=== PATIENT | female | born 1940 | race African-American/Black ===

== ENCOUNTER 2018-11-04 16:15 | Inpatient (IN) | payer OTHER, BC ==
[~2018-11-04] VITALS: Ht 149.9 cm; Wt 76.0 kg
[2018-11-04 17:42] VITALS: BP 155/36
--- NOTE | 2018-11-04 17:49 | NUR ---
STROKE ACTIVATED NOW PER EDP
[2018-11-04 18:13] LABS: URINE BILIRUBIN NEGATIVE (Negative); URINE BLOOD TRACE (Negative); URINE CLARITY CLEAR; URINE COLOR YELLOW; URINE GLUCOSE-RANDOM* NEGATIVE (Negative); URINE KETONES NEGATIVE (Negative); URINE LEUKOCYTES NEGATIVE (Negative); URINE NITRITE NEGATIVE (Negative); URINE PROTEIN (DIPSTICK) NEGATIVE (Negative); URINE SPECIFIC GRAVITY 1.015 (1.005-1.035); URINE UROBILINOGEN 0.2 E.U./dl (0.2-1.0)
[2018-11-04 19:53] LABS: ABSOLUTE NEUTROPHILS 2.6 thou/uL (1.4-8.2); HEMATOCRIT 30.2 % (37.0-47.0); HEMOGLOBIN 9.8 gm/dL (12.0-15.0); LYMPHOCYTES 37.4 % (24.0-44.0); MCH 26.9 pg (26.0-34.0); MCHC 32.5 g/dL (28.0-37.0); MCV 82.9 fL (80.0-100.0); MONOCYTES 8.9 % (1.0-8.0); PLATELET COUNT 227 thou/uL (150-400); POLYS 49.7 % (36.0-66.0); RBC 3.64 mil/uL (4.20-5.00); RDW 14.5 % (10.5-14.5); WBC 5.2 thou/uL (4.0-11.0)
[2018-11-04 19:57] LABS: ANION GAP 7 mmol/L (7-16); BUN 20 mg/dL (7-18); CALCIUM 9.1 mg/dL (8.5-10.1); CHLORIDE 100 mmol/L (98-107); CO2 26 mmol/L (21-32); CREATININE 1.7 mg/dL (0.6-1.0); GLUCOSE 98 mg/dL (74-106); POTASSIUM 4.8 mmol/L (3.5-5.1); SODIUM 133 mmol/L (136-145)
[2018-11-04 20:02] LABS: APTT 25.7 Seconds (24.5-32.8); PROTIME 10.9 Seconds (9.3-11.4)
[2018-11-04 20:05] LABS: ALBUMIN 3.7 g/dL (3.4-5.0); SGOT 16 U/L (15-37); SGPT 12 U/L (30-65); TOTAL BILIRUBIN 0.3 mg/dL (<0.1-1.0); TOTAL PROTEIN 7.9 g/dL (6.4-8.2); TROPONIN-I <0.06 ng/mL (<0.06)
--- NOTE | 2018-11-04 21:35 | NUR ---
PATIENT UP TO RESTROOM WITH STANDBY ASSIST
[2018-11-04 23:06] VITALS: BP 126/75
[2018-11-04 23:15] VITALS: BP 165/64
--- NOTE | 2018-11-05 03:38 | NUR ---
ASSUMED CARE OF PATIENT AT 2300. PATIENT ARRIVED TO ROOM 354 VIA WHEELCHAIR WITH THIS RN FROM ER. [facility] SCORE OF 1 D/T PATIENT STATING AGE OF 75 WHEN ACTUAL AGE IS 77. DISCUSSED WITH PATIENT AFTER [facility] SCORING THAT PATIENT IS IN FACT 77 AND NOT 75, PATIENT ABLE TO TALK THROUGH YEAR SHE WAS BORN AND HOW MANY YEARS SINCE TO DETERMINE CORRECT/CURRENT AGE. PATIENT INTACT OTHERWISE. C/O HEADACHE AND L LOWER EXTREMITY PAIN, TYLENOL ADMINISTERED, PATIENT ABLE TO SLEEP. PATIENT ABLE TO SLEEP MOST OF SHIFT. NO OTHER CONCERNS/COMPLAINTS AT THIS TIME. WILL CONTINUE TO MONITOR.
[2018-11-05 04:56] VITALS: BP 104/39
[2018-11-05 06:08] LABS: HEMATOCRIT 30.8 % (37.0-47.0); MCHC 32.6 g/dL (28.0-37.0); MCV 82.9 fL (80.0-100.0); RBC 3.71 mil/uL (4.20-5.00); RDW 14.8 % (10.5-14.5); WBC 6.3 thou/uL (4.0-11.0)
[2018-11-05 06:27] LABS: ANION GAP 9 mmol/L (7-16); BUN 17 mg/dL (7-18); CALCIUM 8.9 mg/dL (8.5-10.1); CHLORIDE 99 mmol/L (98-107); CHOLESTEROL 138 mg/dL (<200); CO2 25 mmol/L (21-32); CREATININE 1.6 mg/dL (0.6-1.0); GLUCOSE 89 mg/dL (74-106); HDL CHOLESTEROL 50 mg/dL (>40); LDL CHOLESTEROL 69 mg/dL (<100); POTASSIUM 4.4 mmol/L (3.5-5.1); SODIUM 133 mmol/L (136-145); TC:HDL 2.8 Ratio (Not establshd); TRIGLYCERIDE 98 mg/dL (<150); VLDL 20 mg/dL (<40)
[2018-11-05 08:29] VITALS: BP 139/55
[2018-11-05] MEDS ORDERED: LOPRESSOR100 M1 PO (11:52)
[2018-11-05] MEDS ORDERED: MOBIC7.5 MG PO (11:52)
[2018-11-05] MEDS ORDERED: SYNTHROID50 MCG PO (11:52)
[2018-11-05] MEDS ORDERED: AMLODIPINE BESY10 MG PO (11:53)
[2018-11-05] MEDS ORDERED: CELEXA10 MG PO (11:53)
[2018-11-05] MEDS ORDERED: LOSARTAN-HCTZ1 EAC1 PO (11:53)
[2018-11-05] MEDS ORDERED: ZOCOR20 MG PO (11:53)
[2018-11-05] MEDS ORDERED: HYDROXYZINE HCL10 M1 PO (11:54)
--- NOTE | 2018-11-05 13:39 | EKG ---
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[employer]: GISELLE : 1940 Requested By: Flo Lim Order Number: [id number] MD: Dionte Whitmore Measurements Intervals Percival Rate: 60 P: 33 ND: 151 QRS: 10 QRSD: 66 T: 19 QT: 433 QTc: 433 Interpretive Statements Sinus rhythm Abnormal R-wave progression, early transition No previous ECG available for comparison Electronically Signed On 11-05-2018 13:39:45 CDT by Dionte Whitmore [email or web address] ��������������������������������������������� <ELECTRONICALLY SIGNED> ���������������������������������������� By: Dionte Whitmore MD, [facility] ��������������������������������������������� 11/05/18 1339 [id number] Dionte Whitmore MD, FACC /EPI
[2018-11-05 14:00] VITALS: BP 127/49
[2018-11-05 16:41] VITALS: BP 137/52
[2018-11-05 19:47] VITALS: BP 130/61
--- NOTE | 2018-11-05 19:59 | NUR ---
ASSUMED CARE OF PT AT 0700. ASSESSMENT COMPLETED. A&0,X4. ROOM AIR. SR/SB. NEW HOME MEDS RESTARTED ORDERED. PT COMPLAINING OF LEG PAIN, ARTERIAL US COMPLETED, NO STENOSIS NOTED. DR. BELCHER WAS AT BEDSIDE THIS AFTERNOON, ORDERS FOR MRI AND MRA - NO ACUTE PROCESS NOTED. PT IN STABLE CONDITION. NO OTHER CHANGE IN STATUS.
[2018-11-05 23:06] LABS: GLYCOHEMOGLOBIN (HGB A1C) 5.9 % (4.8-5.6)
[2018-11-06 04:15] VITALS: BP 133/69
--- NOTE | 2018-11-06 04:26 | NUR ---
FOLLOWING PT POC WITH IVF. PT IS A/OX4 AND VSS. PT IS UP TO BATHROOM WITH IV POLE IN TOW. PT HAS NO COMPLAINTS OF N/V OR PAIN. HOURLY ROUNDING.
[2018-11-06 05:43] LABS: HEMATOCRIT 27.8 % (37.0-47.0); MCH 26.8 pg (26.0-34.0); MCHC 32.2 g/dL (28.0-37.0); MCV 83.3 fL (80.0-100.0); RBC 3.34 mil/uL (4.20-5.00); RDW 14.6 % (10.5-14.5); WBC 5.8 thou/uL (4.0-11.0)
[2018-11-06 05:56] LABS: CALCIUM 8.6 mg/dL (8.5-10.1); CREATININE 1.2 mg/dL (0.6-1.0); POTASSIUM 5.2 mmol/L (3.5-5.1)
[2018-11-06 07:44] VITALS: BP 138/59
[2018-11-06 11:26] VITALS: BP 127/48
[2018-11-06] MEDS ORDERED: ADULT LOW DOSE81 MG PO (13:36)
[2018-11-06 14:51] VITALS: BP 127/48
[2018-11-06 14:53] VITALS: BP 127/48
[2018-11-06] MEDS ORDERED: PREDNISONE 20 M20 MG PO (15:06)
--- NOTE | 2018-11-06 15:41 | NUR ---
PT DISCHARGED HOME WITH SPOUSE..RX GIVEN [facility] MED SHEETS...DENIES PAIN..
--- NOTE | 2018-11-06 15:58 | 2DMMODE ---
[facility] [address] [place] [address] 2 D/M-MODE ECHOCARDIOGRAM Name: KECIA MONTAGUE Room #: 354-P [facility] IN [facility]#: [id number] ������������� Admission: 11/04/18 ������������� Attend Phys: Yasmani Stacy MD Discharge: ��� 11/06/18 ������������� ��� Date of : 38 Date of Service: 11/06/18 1558 �� Report #: [id number] �������� ��������������������������������������������[id number] THIS REPORT FOR: //name// APPROVED REPORT Study performed: 11/06/2018 13:37:21 EXAM: Comprehensive 2D, Doppler, and color-flow Echocardiogram Patient Location: In-Patient Room #: 354 Status: routine BSA: 1.91 HR: 65 bpm BP: 138/59 mmHg Rhythm: NSR Other Information Study Quality: Good Indications CVA/TIA Hypertension/HDD Echo Enhancing Agent Indication: Rule out Shunt Agent(s) / Amount(s) Used: Agitated Saline 6 cc 2D Dimensions RVDd: 31.89 mm IVSd: 9.95 (7-11mm) LVOT Diam: 18.54 (18-24mm) LVDd: 36.38 mm PWd: 11.24 (7-11mm) Ascending Ao: 32.01 (22-36mm) LVDs: 26.28 (25-40mm) Aortic Root: 23.81 mm IVC: 9.00 mm Volumes Left Atrial Volume (Systole) Single Plane 4CH: 72.85 mL Single Plane 2CH: 57.66 mL LA ESV Index: 37.00 mL/m2 Aortic Valve AoV Peak Vega.: 3.36 m/s AO Peak Gr.: 45.05 mmHg LVOT Max P.46 mmHg AO Mean Gr.: 24.78 mmHg LVOT Mean P.37 mmHg AO V2 Mean: 2.36 m/s LVOT Max V: 1.06 m/s [facility] [place] [address] 2 D/M-MODE ECHOCARDIOGRAM Name: KECIA MONTAGUE Room #: 354-P [facility] IN ..#: [id number] ������������� Admission: 11/04/18 ������������� Attend Phys: Yasmani Stacy MD Discharge: ��� 11/06/18 ������������� ��� Date of : 38 Date of Service: 11/06/18 1558 �� Report #: [id number] �������� ��������������������������������������������[id number] AO V2 VTI: 81.60 cm LVOT Mean V: 0.71 m/s DESIRE (VTI): 0.84 cm2 LVOT V1 VTI: 25.46 cm DESIRE Vmax: 0.85 cm2 AI Vmax: 5.35 m/s SV (LVOT): 68.71 mL AI [place]: 3.93 m/s2 AI PHT: 394.53 ms Mitral Valve E/A Ratio: 0.6 MV Decel. Time: 222.97 ms MV E Max Vega.: 0.94 m/s MV A Vega.: 1.46 m/s MV PHT: 64.66 ms IVRT: 103.81 ms Pulmonary Valve PV Peak Vega.: 0.93 m/s PV Peak Gr.: 3.48 mmHg Pulmonary Vein P Vein S: 0.69 m/s P Vein A: 0.29 m/s P Vein D: 0.32 m/s P Vein A Dur.: 96.9 msec P Vein S/D Ratio: 2.16 Tricuspid Valve TR Peak Vega.: 2.56 m/s RAP Estimate: 5.00 mmHg TR Peak Gr.: 26.29 mmHg PA Pressure: 31.00 mmHg Left Ventricle The left ventricle is normal size. There is normal LV segmental wall motion. There is normal left ventricular wall thickness. The left ventricular systolic function is normal. The left ventricular ejection fraction is within the normal range. LVEF is 60-65%. Mild diastolic dysfunction is present (impaired relaxation pattern). Right Ventricle The right ventricle is normal size. The right ventricular systolic function is normal. Atria Left atrium is mildly dilated. No shunting by contrast bubble injection. The right atrium size is normal. Aortic Valve Aortic valve is calcified. Moderate aortic regurgitation. There is [facility] [address] [place] [address] 2 D/M-MODE ECHOCARDIOGRAM Name: KECIA MONTAGUE Room #: 354-P [facility] IN ..#: [id number] ������������� Admission: 11/04/18 ������������� Attend Phys: Yasmani Stacy MD Discharge: ��� 11/06/18 ������������� ��� Date of : 38 Date of Service: 11/06/18 1558 �� Report #: [id number] �������� ��������������������������������������������[id number] moderate valvular aortic stenosis (maximum pressure gradient of 45 mmHg and mean pressure gradient of 25 mmHg). Mitral Valve The mitral valve is normal in structure. Mild mitral regurgitation. No evidence of mitral valve stenosis. Tricuspid Valve The tricuspid valve is normal in structure. Trace tricuspid regurgitation. PAP is estimated at 30 mmHg. Pulmonic Valve Pulmonic valve is not well visualized. Trace pulmonic regurgitation. Great Vessels The aortic root is normal in size. IVC is normal in size and collapses >50% with inspiration. Pericardium There is no pericardial effusion. <Conclusion> The left ventricular systolic function is normal. There is normal LV segmental wall motion. LVEF is 60-65%. Mild diastolic dysfunction No shunting by contrast bubble injection. Left atrium is mildly dilated. Aortic valve is calcified. Moderate valvular aortic stenosis (maximum pressure gradient of 45 mmHg and mean pressure gradient of 25 mmHg). Moderate aortic regurgitation. The mitral valve is normal in structure. Mild mitral regurgitation. Trace tricuspid regurgitation. Pulmonary artery pressure estimated at 30 mmHg. There is no pericardial effusion. ��������������������������������������������� <ELECTRONICALLY SIGNED> ���������������������������������������� By: Dionte Whitmore MD, FACC ��������������������������������������������� 11/06/18 1558 1558 1558 Dionte Whitmore MD, FACC /INF
--- NOTE | 2018-11-07 08:39 | NUR ---
PATIENT DISCHARGED PRIOR TO BEING EVALUATED BY OT.
== END 2018-11-06 15:51 | disposition home or self-care (01) | DRG 69 ==
LOC: ER 16:15 → EROBS 22:09 → 3W 22:09 → ENTRNSPT 11-06 15:38 → EDTRNSPTSTS 11-06 15:44 → 3W 11-06 15:51
PROVIDERS: Emergency Medicine; Nurse Practitioner Family; ADMIT Hospitalist
DX: G45.9 Transient cerebral ischemic attack, unspecified (principal); N17.9 Acute kidney failure, unspecified; I10 Essential (primary) hypertension; E78.5 Hyperlipidemia, unspecified; M62.84 Sarcopenia; E03.9 Hypothyroidism, unspecified; G43.909 Migraine, unspecified, not intractable, without status migrainosus; Z79.899 Other long term (current) drug therapy; Z82.49 Family history of ischemic heart disease and other diseases of the circulatory system; Z80.8 Family history of malignant neoplasm of other organs or systems; Z83.3 Family history of diabetes mellitus; Z83.6 Family history of other diseases of the respiratory system
CPT/HCPCS: 10779; 10879

== ENCOUNTER 2020-12-10 14:45 | Emergency (ER) | payer OTHER, BC ==
[~2020-12-10] VITALS: Ht 152.4 cm; Wt 54.4 kg
[~2020-12-10 14:45] MED LIST: ADULT LOW DOSE81 MG PO; AMLODIPINE BESY10 MG PO; CELEXA10 MG PO; HYDROXYZINE HCL10 M1 PO; LOPRESSOR100 M1 PO; LOSARTAN-HCTZ1 EAC1 PO; MOBIC7.5 MG PO; PREDNISONE 20 M20 MG PO; SYNTHROID50 MCG PO; ZOCOR20 MG PO
[2020-12-10 17:26] VITALS: BP 133/54
== END 2020-12-10 17:35 | disposition home or self-care (01) ==
LOC: ER 14:45
DX: M54.2 Cervicalgia (principal); M54.5 Low back pain; M79.605 Pain in left leg; I10 Essential (primary) hypertension; E78.5 Hyperlipidemia, unspecified; G43.909 Migraine, unspecified, not intractable, without status migrainosus; E03.9 Hypothyroidism, unspecified; Z79.899 Other long term (current) drug therapy; Z79.82 Long term (current) use of aspirin; Z87.891 Personal history of nicotine dependence; Z86.73 Personal history of transient ischemic attack (TIA), and cerebral infarction without residual deficits; V49.59XA Passenger injured in collision with other motor vehicles in traffic accident, initial encounter; Y93.89 Activity, other specified; Y92.413 State road as the place of occurrence of the external cause; Y99.9 Unspecified external cause status